=== PATIENT | female | born 1995 | race Caucasian/White ===

== ENCOUNTER 2017-04-01 20:28 | Inpatient (IN) ==
[2017-04-01] MEDS ORDERED: PEPCID IV PRN (20:33)
[2017-04-01] MEDS ORDERED: ZOFRAN IV PRN (20:33)
[2017-04-01] MEDS ORDERED: STADOL IV PRN ×2 (20:33)
[2017-04-01] MEDS ORDERED: REGLAN PO ONE (20:33)
[2017-04-01] MEDS ORDERED: TYLENOL PO PRN (20:33)
[2017-04-01] MEDS ORDERED: KEFZOL 1 GM/D5W 1 GM/50 ML IVPB IV PRN (20:33)
[2017-04-01] MEDS ORDERED: PEPCID PO PRN (20:33)
[2017-04-01] MEDS ORDERED: PEPCID PO ONE (20:33)
[2017-04-01] MEDS ORDERED: BRETHINE SUBQ PRN (20:33)
[2017-04-01] MEDS ORDERED: AMBIEN PO PRN (20:33)
[2017-04-01] MEDS ORDERED: SODIUM CHLORIDE 0.9% INJ PRN (20:38)
[2017-04-01] MEDS ORDERED: PHENERGAN IV PRN (20:38)
[2017-04-01] MEDS: LR 1,000 ML IV ONE (22:30)
[2017-04-01] MEDS ORDERED: CYTOTEC PO ONE (23:00)
[2017-04-01 23:42] LABS: BASO% 0.7 % (0.0-0.8); EOS# 0.09 X1000 (0.0-0.7); EOS% 0.7 % (0.0-10.0); HEMATOCRIT 32.9 % (37.0-47.0); HEMOGLOBIN 10.7 g/dL (12.0-16.0); IMM GRAN# 0.51 X1000 (0.0-0.04); IMM GRAN% 4.1 % (0.0-0.5); LYMPH# 2.43 X1000 (1.2-3.4); LYMPH% 19.4 % (20.5-51.1); MANUAL DIFF NEEDED? YES; MCH 28.6 PG (27-31); MCHC 32.5 g/dL (33-37); MONO# 1.03 X1000 (0.11-0.59); MONO% 8.2 % (1.7-9.3); MPV 11.1 FL (7.4-10.4); NEUT% 66.9 % (42.2-75.2); PLT 253 X1000 (130-400); RBC 3.74 XMIL (4.2-5.4)
[2017-04-01 23:43] LABS: BANDS 8 % (0-1); LYMPHS 23 % (21-51); MONO 2 % (1-9)
[2017-04-02] MEDS: CYTOTEC PO SCH ×2 (04:02→13:59)
[2017-04-02] MEDS: STADOL IV PRN ×3 (04:27→08:28)
[2017-04-02] MEDS: LR 1,000 ML IV ONE ×2 (04:30→10:34)
[2017-04-02] MEDS ORDERED: PITOCIN 30 UNITS/LR 30 UNITS/500 ML IV.SOLN IV SCH (07:00)
[2017-04-02] MEDS ORDERED: XYLOCAINE-MPF 1% INJ ONE (09:04)
[2017-04-02] MEDS ORDERED: MINERAL OIL TOP ONE (09:05)
[2017-04-02] MEDS ORDERED: FENTANYL-BUPIV-NS 2 MCG-0.1% 200 ML EPIDURAL PRN (10:08)
[2017-04-02] MEDS ORDERED: FENTANYL IV ONE (10:15)
[2017-04-02] MEDS ORDERED: NAROPIN 0.2% INJ ONE (10:15)
[2017-04-02] MEDS ORDERED: XYLOCAINE-MPF 2% INJ ONE (11:07)
[2017-04-02] MEDS ORDERED: XYLOCAINE-MPF 2% ONE (11:10)
[2017-04-02] MEDS ORDERED: PITOCIN 20 UNITS/LR 20 UNITS/1,000 ML IV.SOLN ONE (14:05)
[2017-04-02] MEDS ORDERED: PITOCIN 20 UNITS/LR 20 UNITS/1,000 ML IV.SOLN IV SCH (15:09)
[2017-04-02] MEDS ORDERED: NORCO-5 PO PRN (15:09)
[2017-04-02] MEDS ORDERED: PITOCIN IM PRN (15:09)
[2017-04-02] MEDS ORDERED: BENADRYL PO PRN (15:09)
[2017-04-02] MEDS ORDERED: HYDROXYZINE IM PRN (15:09)
[2017-04-02] MEDS ORDERED: PITOCIN 30 UNITS/LR 30 UNITS/500 ML IV.SOLN IV ONE (15:09)
[2017-04-02] MEDS ORDERED: BOOSTRIX VACCINE IM ONE (15:09)
[2017-04-02] MEDS ORDERED: XYLOCAINE-MPF 1% INJ PRN (15:09)
[2017-04-02] MEDS ORDERED: BENADRYL IV PRN (15:09)
[2017-04-02] MEDS ORDERED: MINERAL OIL PO PRN (15:09)
[2017-04-02] MEDS ORDERED: HYDROXYZINE PO PRN (15:09)
[2017-04-02] MEDS ORDERED: M-M-R II VACCINE SUBQ ONE (15:09)
[2017-04-02] MEDS ORDERED: CYTOTEC PO PRN (15:09)
[2017-04-02] MEDS: MOTRIN PO PRN (15:28)
[2017-04-02] MEDS: NORCO-10 PO PRN ×2 (15:28→20:53)
[2017-04-02] MEDS: PERI MEDS (DERMOPLAST/NUPERCAINAL/TUCKS) MISC PRN (15:29)
[2017-04-02] MEDS: PERICOLACE PO SCH (20:47)
[2017-04-03] MEDS: AMBIEN PO PRN ×2 (02:30→21:03)
[2017-04-03 06:24] LABS: MANUAL DIFF NEEDED? NO
[2017-04-03 06:34] LABS: BASO% 0.3 % (0.0-0.8); EOS# 0.05 X1000 (0.0-0.7); EOS% 0.3 % (0.0-10.0); HEMATOCRIT 29.3 % (37.0-47.0); HEMOGLOBIN 9.2 g/dL (12.0-16.0); IMM GRAN% 2.1 % (0.0-0.5); LYMPH# 2.85 X1000 (1.2-3.4); LYMPH% 19.6 % (20.5-51.1); MCHC 31.4 g/dL (33-37); MCV 89.1 FL (81-99); MONO# 1.33 X1000 (0.11-0.59); MONO% 9.2 % (1.7-9.3); MPV 11.3 FL (7.4-10.4); NEUT% 68.5 % (42.2-75.2); PLT 224 X1000 (130-400); RBC 3.29 XMIL (4.2-5.4)
[2017-04-03 07:40] LABS: UR AMPHETAMINES QUAL NONE DETECTED (NONE DETECT); UR BARBITUATES QUAL NONE DETECTED (NONE DETECT); UR BENZODIAZEPIN QUAL NONE DETECTED (NONE DETECT); UR CANNABINOIDS QUAL NONE DETECTED (NONE DETECT); UR COCAINE QUAL NONE DETECTED (NONE DETECT); UR MDMA QUAL NONE DETECTED (NONE DETECT); UR METHADONE QUAL NONE DETECTED (NONE DETECT); UR METHAMPHETAMINE QUAL NONE DETECTED (NONE DETECT); UR OPIATES QUAL NONE DETECTED (NONE DETECT); UR OXYCODONE QUAL NONE DETECTED (NONE DETECT); UR PCP QUAL NONE DETECTED (NONE DETECT); UR TCA QUAL NONE DETECTED (NONE DETECT)
[2017-04-03] MEDS: MOTRIN PO PRN ×2 (07:49→18:54)
[2017-04-03] MEDS: NORCO-10 PO PRN ×3 (07:49→18:53)
[2017-04-03] MEDS: PERICOLACE PO SCH (20:51)
[2017-04-03] MEDS: PERI MEDS (DERMOPLAST/NUPERCAINAL/TUCKS) MISC PRN (20:56)
[2017-04-04] MEDS: MOTRIN PO PRN (08:04)
[2017-04-04] MEDS: NORCO-10 PO PRN (08:04)
== END 2017-04-04 12:25 | disposition home or self-care (01) ==
LOC: P.LD 20:28 → P.WC 04-02 16:40
PROVIDERS: ADMIT Obstetrics & Gynecology; ATTEND Obstetrics & Gynecology